=== PATIENT | female | born 1990 | race Caucasian/White ===

== ENCOUNTER 2025-01-02 10:41 | Emergency (ER) | payer OTHER ==
[~2025-01-02] VITALS: Ht 152.4 cm; Wt 88.0 kg
[2025-01-02 11:07] VITALS: BP 194/87; TEMP 97.8; O2SAT 98
[2025-01-02] MEDS ORDERED: BENZ-38 PO (12:46)
[2025-01-02 12:58] VITALS: PULSE 92
[2025-01-02 13:13] VITALS: RESP 16
== END 2025-01-02 13:14 | disposition home or self-care (01) ==
LOC: ER 10:41
DX: R05.9 Cough, unspecified (principal)
CPT/HCPCS: 71045; 99283